=== PATIENT | female | born 1965 | race Caucasian/White ===

== ENCOUNTER → 2016-08-21 | Outpatient (CLI) | payer BC ==
[~2016-08-21] MED LIST: CEPH-331 PO; CHOL200014 PO; CHOL5000 PO; CLIN-78 PO; CYCL10TA45 PO; HYDR-3754 PO; IBUP-788; METH4TAB27 PO; NAPR220C11 PO; NF-TORA10 PO; ONDA4TAB8 PO; OXAP600T PO; OXYC1TAB87 PO
[2016-08-21 15:25] VITALS: BP 158/88
--- NOTE | 2016-08-21 15:26 | Urgent Care T Sheet Gen (E) ---
Intake General Temperature (Fahrenheit): 97.4 Pulse: 110 Blood Pressure Systolic: 158 Blood Pressure Diastolic: 88 Respirations: 18 SPO2: 99 Description of Symptoms Patient presents with several complaints. Patient states she started feeling ill after having 5 teeth pulled on Jul 12. States the gums became infected and she was treated with Amoxicillin however that made her have diarrhea therefore she stopped. Since then, she has noticed continued pain to the area and foul taste in her mouth. Soon after surgery, she developed a cold. The nasal symptoms resolved however the chest congestion and productive cough has lingered. Patient also notes malaise, body aches and muscular LBP. Back pain doesn't radiate. No loss of bowel or bladder function. Been taking OTC cold meds without relief. Hasn't seen her dentist since the procedure. History of Present Illness Allergies: Coded Allergies: morphine (Verified Allergy, Intermediate, Nausea, 01/17/16) Home Meds Active Scripts Cyclobenzaprine HCl (Flexeril)10 Mg [id number] Mg PO TID PRN MUSCLE SPASMS #30 TAB Ref 0 Prov:RUMA CACERES MD 01/17/16 Ondansetron (Zofran ODT)4 Mg Tab.rapdis4 Mg PO Q4H PRN NAUSEA/VOMITING #10 TAB Ref 0 Prov:RUMA CACERES MD 01/17/16 Oxycodone HCl/Acetaminophen (Percocet 5mg/325mg)1 Tab Tablet1 Tab PO Q4H PRN PAIN #8 TAB Ref 0 Prov:RUMA CACERES MD 01/17/16 Cyclobenzaprine HCl (Flexeril)10 Mg [id number] Mg PO TID PRN PAIN #15 TAB Prov:RO CANTRELL MD 03/08/15 Ketorolac Tromethamine (Toradol)10 Mg Tab10 Mg PO Q6H PRN PAIN #12 TAB Prov:RO CANTRELL MD 03/08/15 Reported Medications Cholecalciferol (Vitamin D3) (Vitamin D-3)2,000 Unit Tablet2,000 Unit PO DAILY Vitamin/Mineral Supplemnt Ref 0 01/17/16 Naproxen Sodium (Aleve)220 Mg [id number] Mg PO NEEDED PRN PAIN 01/17/16 Ibuprofen (Motrin)800 Mg Tablet Prn 06/18/13 Respiratory Constitutional Symptoms: No Fever, Malaise EENTM: Mouth Pain Respiratory: Cough Short of breathNo Wheezing Cardiovascular: No symptoms reported Musculoskeletal: Back pain Muscle pain All Other Systems Reviewed Remaining Systems: All other systems reviewed with negative findings Past Sdyachv-Yfzrof-Cturmn Hx Patient's Social History Alcohol Use: Denies Use Smoking Status: Current every day smoker Recent foreign travel: No Surgeries/Hospitalizations Hospitalization/Surgery Hx: HYSTERECTOMY, GALLBLADDER, R TENDON REPAIR FOOT, BILAT HEELS, Right arm nerve damage. Respiratory Respiratory History: None Cardiovascular Cardiovascular History: None Neuro/Muscular Neuro/Muscular History: None Reproductive System Sexually Transmitted Diseases: No Gastrointestinal GI/Endocrine History: Gallbladder problems, None Comment: gallbladder removed. Diabetes Diabetes: No HEENT Impaired Vision: None Hearing Impaired: None Psychosocial Behavior Disorders: None Physical Exam Physical Exam General Appearance: WD/WN No apparent distress Eyes, Ears, Nose, Throat Ex: Other (examination of the mouth reveals sores along the R lower gums. poor dentition is noted to surrounding area.) Neck Exam: Supple Lymphadenopathy (slightly enlarged glands along the R neck.) Respiratory Exam: Lungs clear (deep sounding cough throughout exam.)No Rhonchi , No Wheezes Cardiovascular Exam: Regular rate, rhythm Back Exam: Other (generalized tenderness along the thoracic back muscles. no radiation with palpation to the area. no spasm noted on exam.) Neurologic/Psychiatric Exam: No motor deficits No sensory deficits Departure Urgent Care Impression Impression: Primary Impression: Cough Additional Impressions: Dental infection Elevated blood pressure reading Departure Disposition: 01 HOME OR SELF-CARE Condition: Stable Additional Instructions: I wanted to place the patient on an antibiotic that would help with her chest congestion/cough and her probable dental infection. She states the Amoxicillin she previously took upset her stomach so I opted to place her on Clindamycin 150mg QID x 7 days. Suggested ibuprofen as needed for back pain. May also use BioFreeze or capsaicin cream as needed for topical relief. Rest. Fluids Patient doesn't regularly see a doctor so I'm not sure if the elevated BP today is from cold meds or if that is normal for her. Suggested she follow of low salt diet and exercise daily. Return as needed If dental pain/symptoms persist, she needs to see her dentist for recheck. Patient understands DC instructions. All questions were answered. Scripts Clindamycin HCl 150 Mg [id number] Mg PO QID Infection #28 CAP Ref 0 Prov:MISTY GREWAL 08/21/16 End of report . MISTY GREWAL Aug 21, 2016 15:25
== END ==
LOC: MHUC 14:54
PROVIDERS: ATTEND Physician Assistant
DX: R05 Cough (principal); K04.7 Periapical abscess without sinus; R03.0 Elevated blood-pressure reading, without diagnosis of hypertension
CPT/HCPCS: 99213

== ENCOUNTER 2016-10-21 11:38 | Emergency (ER) | payer BC ==
[~2016-10-21] VITALS: Ht 157.5 cm; Wt 150.0 kg
[2016-10-21] MEDS ORDERED: KETOROLAC 60 MG/2 ML (TORADOL) VIAL IM ONE (12:10)
[2016-10-21 13:25] LABS: BILIRUBIN,URINE 1+ (Negative); CLARITY,URINE Clear; COLOR,URINE Yellow; GLUCOSE, URINE (UA) Negative (Negative); LEUKOCYTE ESTERASE ,URINE Negative (Negative); RBC,URINE 0-2 /HPF; URINE CENTRIFUGED VOLUME 12 mL; UROBILINOGEN,URINE 0.2 mg/dL (0.2-1.0)
[2016-10-21 13:29] VITALS: BP 139/86
[2016-10-21] MEDS ORDERED: DEXAMETHASONE 10 MG/ML (DECADRON) VIAL IM ONE (14:00)
[2016-10-21] MEDS ORDERED: LORazepam 2 MG/ML (ATIVAN) 1 ML VIAL IV ONE (14:15)
[2016-10-21] MEDS ORDERED: HYDROmorphone 1 MG/ML (DILAUDID) SYRINGE IV ONE (14:15)
--- NOTE | 2016-10-21 14:44 | NUR ---
pt refused lab and iv, wants meds and go home
== END 2016-10-21 14:40 | disposition home or self-care (01) ==
LOC: ED 11:40
DX: M25.551 Pain in right hip (principal)
CPT/HCPCS: 73502; 81003; 81015; 96372; 96374; 96375; 99283; J1100; J1170; J1885; J2060